=== PATIENT | male | born 1970 | race Caucasian/White ===

== ENCOUNTER 2018-03-31 17:25 | Emergency (ER) | payer SELFPAY ==
[~2018-03-31] VITALS: Ht 177.8 cm; Wt 90.4 kg
[2018-03-31] MEDS ORDERED: MOTRIN800 MG PO (19:45)
[2018-03-31 20:20] VITALS: BP 166/103
== END 2018-03-31 20:21 | disposition home or self-care (01) ==
LOC: EME 17:25
DX: S03.42XA Sprain of jaw, left side, initial encounter (principal); Y04.2XXA Assault by strike against or bumped into by another person, initial encounter
CPT/HCPCS: 70110; 99281; 99283